=== PATIENT | female | born 1945 | race Two or more races ===

== ENCOUNTER 2025-02-11 15:11 | Emergency (ER) | payer OTHER, MEDICAID ==
[~2025-02-11] VITALS: Ht 154.9 cm; Wt 59.0 kg
[~2025-02-11 15:11] MED LIST: ATOR10TA; HYDR10TA35; PREG25CA
[2025-02-11 15:56] VITALS: BP 129/72; PULSE 95; RESP 22; TEMP 98.4; O2SAT 95
--- NOTE | 2025-02-11 16:27 | ED.PDOC ---
Psychiatric HPI Comments This is a pleasant 79-year-old female with a history of anxiety that is brought in by EMS for acute anxiety that has resolved at this time. 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 Denies any symptoms at this time. She follows up with PCP, psychiatry, and therapy on a scheduled bases and is adherent to medication regimen. She denies any thoughts of hurting herself others. Chief Complaint: Anxiety Time Seen by MD: 15:37 Reviewed Notes: Nurses Notes, Medications, Allergies Information Source: Patient Mode of Arrival: EMS Past Medical History PAST MEDICAL HISTORY: Anxiety Family History Family History: Reviewed,noncontributory to illness Social History Smoker: Non-Smoker Alcohol: Denies ETOH Use Drugs: Denies Drug Use All Other Systems: Reviewed and Negative (Per HPI) Physical Exam General Appearance: No Apparent Distress, Normal HEENT: Normal ENT Inspection, Pharynx Normal, TMs Normal Neck: Full Range of Motion, Non-Tender, Normal, Normal Inspection Respiratory: Chest Non-Tender, Lungs Clear, No Accessory Muscle Use, No Respiratory Distress, Normal Breath Sounds Cardiovascular: No Murmur, No Gallop, Regular Rate/Rhythm Breast Exam: Deferred Gastrointestinal: No Organomegaly, Non Tender, No Pulsatile Mass, Normal Bowel Sounds, Soft Genitalia: Deferred Pelvic: Deferred Rectal: Deferred Extremities: No calf tenderness, Normal capillary refill, Normal inspection, Normal range of motion, Non-tender, No pedal edema Musculoskeletal : Apperance: Normal Neurologic: Alert, No Motor Deficits, Normal Affect, Normal Mood, No Sensory Deficits Cerebellar Function: Normal Reflexes: Normal Skin: Dry, Normal Color, Warm Lymphatic: No Adenopathy Was a procedure done? Was a procedure done?: No Psych Differential Dx Psych. Differential Dx: Anxiety X-Ray, Labs, Meds, VS Vital Signs Date Time Temp Pulse Resp B/P (MAP) Pulse Ox O2 Delivery O2 Flow Rate FiO2 02/11/25 15:56 95 22 95 Room Air 02/11/25 15:56 98.4 95 18 129/72 (91) 97 98.4 02/11/25 15:27 98.4 95 22 129/72 (91) 97 98.4 X-Ray, Labs, Meds, VS Comment History and physical consistent panic attack After reassessing patient. Symptoms improved significantly Vital signs stable Patient non toxic non ill appearing. May consider brown paper bag or face mask for rebreathing. Discussed lifestyle modification Getting enough sleep/meditating/staying active and exercising/eating healthy diet Lifestyle changes can be an effective way to relieve some of the stress and anxiety patient may cope with everyday. Most of the natural remedies consist of caring for the body, participating in healthy activities, and eliminating unhealthy ones Provided patient with mental health information and encouraged patient to speak with the therapist and psychologist Patient denies suicidal/homicidal ideation and auditory/visual hallucination Advised patient to notify a provider call urgent mental health services if sym ptoms recur or worsen Patient verbalized understanding On reevaluation, patient had symptomatic improvement. Patient is stable for discharge at this time. External notes reviewed. Test results and diagnostic imaging interpreted. All diagnostic findings, discharge care, education and instructions provided Follow-up with PCP in 2 to 3 days Patient verbalized understanding and agreed to treatment plan Vital signs stable, afebrile, no acute distress noted Patient ambulatory with strong steady gait Advised to return precautions for any new or worsening symptoms, return to ER immediately for re-evaluation Patient is aware that the purpose of this visit was for an acute medical emergency requiring emergent stabilization. Chronic conditions, including malignancies have not been ruled out. Patient is instructed to follow up with PCP as directed and discharge instructions for continued care and workup. If unable to arrange follow-up, patient is to return to the emergency department for reassessment. Patient (parent or legal guardian if applicable) was given verbal and written discharge instructions and acknowledges understanding. Time of 1ST Reevaluation: 16:17 Reevaluation 1ST: Improved Patient Education/Counseling: Diagnosis, Treatment Family Education/Counseling: Diagnosis, Treatment Departure 1 Departure Time of Disposition: 16:27 Impression: Primary Impression: Acute anxiety Disposition: 01 HOME / SELF CARE / HOMELESS Condition: Stable Discharged With: Self Critical Care Note Critical Care Time?: No Stability Stability form required: No Heart Score Heart Score: Heart Score Response (Comments) Value History N/A 0 EKG N/A 0 Age N/A 0 Risk Factors N/A 0 Troponin N/A 0 Total 0 DEVIN MULLINS NP Feb 11, 2025 16:27
--- NOTE | 2025-02-11 20:55 | ECG ---
[facility] Test Date: 2025-02-11 Test Time: 16:14:50 Pat Name: SARAH LOCKE Department: ED Room: Gender: F [employer]: LETHA : 1945 Requested By: DEVIN MULLINS Order Number: [id number] Reading MD: Adan Espino Measurements Intervals [place] Rate: 89 P: 25 CO: 147 QRS: -34 QRSD: 77 T: 36 QT: 349 QTc: 425 Interpretive Statements Sinus rhythm Left axis deviation Abnormal R-wave progression, early transition Baseline wander in lead(s) I,aVL Electronically Signed On 02-12-2025 22:14:02 PDT by Adan Espino Please click the below link to view image of tracing.
== END 2025-02-11 16:33 | disposition home or self-care (01) ==
LOC: EDBD 15:11 → ER 15:25
DX: F41.9 Anxiety disorder, unspecified (principal); Z79.899 Other long term (current) drug therapy
CPT/HCPCS: 93005